=== PATIENT | female | born 1960 | race Caucasian/White ===

== ENCOUNTER 2021-06-03 15:33 | Emergency (ER) | payer OTHER ==
[~2021-06-03] VITALS: Ht 167.6 cm; Wt 78.0 kg
[2021-06-03 15:55] VITALS: BP_SYST 126
[2021-06-03 16:42] VITALS: BP_SYST 126
[2021-06-03] MEDS ORDERED: KETOROLAC TROMETHAMINE 60 MG/2 ML VIAL IM ONE (18:15)
[2021-06-03] MEDS ORDERED: ACETAMINOPHEN 500 MG TABLET PO ONE (18:15)
[2021-06-03] MEDS ORDERED: CYCLOBENZAPRINE HCL 10 MG TABLET (FLEXERIL) PO ONE (18:15)
[2021-06-03] MEDS ORDERED: LIDOCAINE PATCH 5% 1 EA TP ONE (18:15)
[2021-06-03] MEDS ORDERED: IBUP-1969 PO (19:06)
== END 2021-06-03 17:56 | disposition left against medical advice (07) ==
LOC: SED 15:33
DX: M54.42 Lumbago with sciatica, left side (principal)
CPT/HCPCS: 96372; 99283; J1885